=== PATIENT | female | born 1975 | race Caucasian/White ===

== ENCOUNTER → 2020-09-10 17:29 | Outpatient (CLI) | payer BC, SELFPAY ==
--- NOTE | ~2020-09-10 | MM_ITS ---
EXAMINATION: MM screening [facility] BI w luisa HISTORY: Screening TECHNIQUE: Craniocaudal and mediolateral oblique 3-D tomosynthesis images were obtained and synthetic 2-D images were generated. CAD analysis was submitted and interpreted. COMPARISON: No prior mammogram is available for comparison at this institution. BREAST PARENCHYMAL COMPOSITION: The breasts are heterogeneously dense, which may obscure small masses . FINDINGS: There is a mass in the upper outer quadrant of the left breast containing internal calcific ations. There are additional asymmetries in the upper outer quadrant of both breasts. IMPRESSION: 1. Partially obscured left breast mass with bilateral breast asymmetries in the upper outer quadrants of both breasts. 2. Additional mammographic views and possible breast ultrasound are recommended. Comparison no previo us outside mammograms also recommended. BI-RADS Category 0: Incomplete: Needs additional imaging evaluation. Reviewed, dictated and finalized at location A. OR LINUX UNIX ADMINISTRATOR IMPRESSION: 1. Partially obscured left breast mass with bilateral breast asymmetries in the upper outer quadrants of both breasts. 2. Additional mammographic views and possible breast ultrasound are recommended . Comparison no previous outside mammograms also recommended. BI-RADS Category 0: Incomplete: Needs additional imaging evaluation.
== END ==
PROVIDERS: PCP Family Medicine; Visit Provider Nurse Practitioner
DX: Z12.31 Encounter for screening mammogram for malignant neoplasm of breast (principal); R92.8 Other abnormal and inconclusive findings on diagnostic imaging of breast
CPT/HCPCS: 77063; 77067

== ENCOUNTER → 2020-10-02 07:41 | Outpatient (CLI) | payer BC, SELFPAY ==
--- NOTE | ~2020-10-02 | MMUS_ITS ---
EXAMINATION: MM diagnostic mammo BI, US breast BI limited HISTORY: 09/10/2020 bilateral digital screening mammogram report of bilateral breast asymmetries in u pper outer quadrants, developing mass in upper outer quadrant of left breast TECHNIQUE: Additional 3-D tomosynthesis images of both breasts were performed and synthetic 2-D image s were generated. CAD analysis was submitted and interpreted. High resolution bilateral upper outer a nd lower-outer quadrants breast ultrasound was performed. COMPARISON: 09/10/2020 bilateral digital screening mammogram 12/30/2018 [facility] mobile van bilateral digital screening mammogram... FINDINGS: MAMMOGRAPHIC FINDINGS: An approximately 11.9 x 22 mm circumscribed mass with calcifications is noted posteriorly in the oute r mid left breast. No other left or right breast mass is evident mammographically. ULTRASOUND: Right breast: 11:00 4 cm from nipple: Parallel circumscribed hypoechoic 5.9 x 7.6 x 6.4 mm sonolucency, without int ernal vascularity or posterior shadowing, likely benign Left breast: 3:00 7 cm from nipple: Parallel circumscribed 8.3 x 14 x 12 mm hypoechoic lesion without internal vascularity or suspicious shadowing, consistent with benign process, likely a benign fibroa denoma. IMPRESSION: 1. Benign findings; no mammographic evidence of malignancy 2. Routine annual mammographic screening is recommended. BI-RADS Category 2: Benign finding(s). Reviewed, dictated and finalized at location A. DRETTE OWNER IMPRESSION: 1. Benign findings; no mammographic evidence of malignancy 2. Routine annual mammographic screening is recommended. BI-RADS Category 2: Benign finding(s).
== END ==
PROVIDERS: Visit Provider Obstetrics & Gynecology Gynecology
DX: R92.8 Other abnormal and inconclusive findings on diagnostic imaging of breast (principal)
CPT/HCPCS: 76642; 77066

== ENCOUNTER → 2022-03-03 16:54 | Outpatient (CLI) | payer BC, SELFPAY ==
--- NOTE | ~2022-03-03 | MM_ITS ---
EXAMINATION: MM screening [facility] BI w luisa HISTORY: Screening mammogram TECHNIQUE: Craniocaudal and mediolateral oblique 3-D tomosynthesis images were obtained and synthetic 2-D images were generated. Bilateral rotated lateral CC views. CAD analysis was submitted and interp reted. COMPARISON: 10/02/2020 bilateral diagnostic mammography and bilateral Limited breast ultrasound 09/10/2020, 12/20/2018 bilateral screening mammogram examinations BREAST PARENCHYMAL COMPOSITION: The breasts are heterogeneously dense, which may obscure small masses . FINDINGS: Again noted is an approximately 2.2 cm circumscribed mass with benign calcifications in the posterior outer mid left breast, likely a benign fibroadenoma. There is no evidence of suspicious ma ss, calcification, or architectural distortion to suggest malignancy in either breast. There has been no suspicious interval change. IMPRESSION: 1. No mammographic evidence of malignancy. 2. Recommend routine screening mammography in one year. BI-RADS Category 2: Benign finding(s). Reviewed, dictated and finalized at location A.
== END ==
PROVIDERS: PCP Family Medicine; Visit Provider Nurse Practitioner
DX: Z12.31 Encounter for screening mammogram for malignant neoplasm of breast (principal)
CPT/HCPCS: 77063; 77067

== ENCOUNTER 2022-04-10 08:58 | Outpatient (CLI) | payer BC, SELFPAY ==
--- NOTE | 2022-04-10 11:00 | NEURO_ITS ---
Impression: # Complains of numbness of hands. # Mild bilateral Carpal Tunnel Syndrome. # No ulnar neuropathy. # Normal needle/EMG exam. Nerve Conduction Studies Anti Sensory Summary Table Stim Site NR Peak (ms) P-T Amp (?V) Site1 Site2 Delta-P (ms) Dist (cm) Donovan (m/s) Left Median Anti Sensory (2-3nd Digit) Wrist 3.2 51.6 Wrist 2-3nd Digit 3.2 14.0 44 Wrist 3.3 25.7 Wrist 2-3nd Digit 3.2 14.0 44 Right Median Anti Sensory (2-3nd Digit) Wrist 3.1 40.0 Wrist 2-3nd Digit 3.1 14.0 45 Wrist 3.0 43.8 Wrist 2-3nd Digit 3.1 14.0 45 Left Radial Anti Sensory (Base 1st Digit) Wrist 1.9 21.0 Wrist Base 1st Digit 1.9 0.0 Right Radial Anti Sensory (Base 1st Digit) Wrist 2.1 22.7 Wrist Base 1st Digit 2.1 0.0 Left Ulnar Anti Sensory (5th Digit) Wrist 2.3 38.9 Wrist 5th Digit 2.3 14.0 61 Right Ulnar Anti Sensory (5th Digit) Wrist 2.0 56.2 Wrist 5th Digit 2.0 14.0 70 Motor Summary Table Stim Site NR Onset (ms) O-P Amp (mV) Site1 Site2 Delta-0 (ms) Dist (cm) Donovan (m/s) Left Median Motor (Abd Poll Brev) Wrist 3.3 7.0 Elbow Wrist 5.2 31.0 60 Elbow 8.5 4.2 Right Median Motor (Abd Poll Brev) Wrist 3.4 5.7 Elbow Wrist 4.9 28.0 57 Elbow 8.3 2.8 Left Ulnar Motor (Abd Dig Minimi) Wrist 2.1 6.7 A Elbow Wrist 5.2 30.0 58 A Elbow 7.3 5.9 Right Ulnar Motor (Abd Dig Minimi) Wrist 2.2 6.7 A Elbow Wrist 5.2 30.0 58 A Elbow 7.4 3.4 F Wave Studies NR F-Lat (ms) L-R F-Lat (ms) Left Median (Mrkrs) (Abd Poll Brev) 27.21 0.99 Right Median (Mrkrs) (Abd Poll Brev) 28.20 0.99 Left Ulnar (Mrkrs) (Abd Dig Min) 27.27 0.11 Right Ulnar (Mrkrs) (Abd Dig Min) 27.15 0.11 EMG Side Muscle Nerve Root Ins Act Fibs Amp Dur Recrt Comment Right 1stDorInt Ulnar C8-T1 Nml Nml Nml Nml Nml Right Ext Indicis Radial (Post Int) C7-8 Nml Nml Nml Nml Nml Right Ext Digitorum Radial (Post Int) C7-8 Nml Nml Nml Nml Nml Right BrachioRad Radial C5-6 Nml Nml Nml Nml Nml Right PronatorTeres Median C6-7 Nml Nml Nml Nml Nml Right Abd Poll Brev Median C8-T1 Nml Nml Nml Nml Nml Left 1stDorInt Ulnar C8-T1 Nml Nml Nml Nml Nml Left Ext Indicis Radial (Post Int) C7-8 Nml Nml Nml Nml Nml Left Ext Digitorum Radial (Post Int) C7-8 Nml Nml Nml Nml Nml Left BrachioRad Radial C5-6 Nml Nml Nml Nml Nml Left PronatorTeres Median C6-7 Nml Nml Nml Nml Nml Left Abd Poll Brev Median C8-T1 Nml Nml Nml Nml Nml MTDD
== END 2022-04-10 08:59 | disposition home or self-care (01) ==
PROVIDERS: PCP Family Medicine; Visit Provider Family Medicine
DX: G56.01 Carpal tunnel syndrome, right upper limb (principal); G56.03 Carpal tunnel syndrome, bilateral upper limbs
CPT/HCPCS: 95886; 95911

== ENCOUNTER → 2023-07-10 16:13 | Outpatient (CLI) | payer BC, SELFPAY ==
--- NOTE | ~2023-07-10 | MM_ITS ---
EXAMINATION: MM screening [facility] BI w luisa HISTORY: Screening mammogram TECHNIQUE: Craniocaudal and mediolateral oblique 3-D tomosynthesis images were obtained and synthetic 2-D images were generated. CAD analysis was submitted and interpreted. COMPARISON: 03/03/2022 bilateral screening mammogram 10/02/2020 bilateral diagnostic mammography and bilateral Limited breast ultrasound 09/10/2020 bilateral screening mammogram BREAST PARENCHYMAL COMPOSITION: There are scattered areas of fibroglandular density. FINDINGS: Stable approximately 2 cm circumscribed mass with benign calcifications in the posterior up per outer quadrant of the left breast. There is no evidence of suspicious mass, calcification, or arc hitectural distortion to suggest malignancy in either breast. There has been no suspicious interval c hange. IMPRESSION: 1. Benign finding. No mammographic evidence of malignancy. 2. Recommend routine screening mammography in one year. BI-RADS Category 2: Benign finding(s). Reviewed, dictated and finalized at location A.
== END ==
PROVIDERS: PCP Nurse Practitioner; Visit Provider Nurse Practitioner
DX: Z12.31 Encounter for screening mammogram for malignant neoplasm of breast (principal)
CPT/HCPCS: 77063; 77067

== ENCOUNTER 2023-10-14 10:11 | Outpatient (CLI) | payer OTHER, SELFPAY ==
--- NOTE | 2023-10-14 | ECG_ITS ---
Measurements Intervals [place] Rate: 70 P: 56 CO: 153 QRS: 46 QRSD: 98 T: 31 QT: 405 QTc: 439 Interpretive Statements SINUS RHYTHM INCOMPLETE RIGHT BUNDLE BRANCH BLOCK BORDERLINE ECG NO PREVIOUS ECG AVAILABLE FOR COMPARISON Electronically Signed On 10-14-2023 11:10:36 GEOLOGICAL TECHNICAL OFFICER by Jay Ashton D.O.
== END 2023-10-14 10:12 | disposition home or self-care (01) ==
PROVIDERS: PCP Family Medicine
DX: Z01.818 Encounter for other preprocedural examination (principal); I45.10 Unspecified right bundle-branch block; R93.1 Abnormal findings on diagnostic imaging of heart and coronary circulation
CPT/HCPCS: 93005

== ENCOUNTER 2024-06-08 07:49 | Day surgery (SDC) | payer OTHER, SELFPAY ==
[2024-05-20 10:25] VITALS: BMI 33.7
[2024-05-24 11:23] VITALS: BMI 32.3
[2024-06-08 08:25] VITALS: BP 139/73; PULSE 79; RESP 18; TEMP 36.6; O2SAT 98
[2024-06-08] MEDS: LACTATED RINGERS 1,000 ML 150 ML IV CONT (08:45)
--- NOTE | 2024-06-08 08:58 | PM.HPGS ---
History of Present Illness History of Present Illness Consent: Risks, benefits, and alternatives have been discussed and questions answered. Patient agrees to proceed with procedure. Chief complaint: Neoplasm Screening Narrative: Ibeth Coker is a 48 year old female presents for screening colonoscopy. Patient's current weight appetite and bowel movements are normal. Patient denies abdominal pain. Has had no bleeding. Family history noncontributory. Review of Systems Review of Systems: All systems reviewed & are unremarkable except as noted in HPI and below PMFSH Past Medical History Medical History (Updated 06/08/24 @ 08:59 by Mario Valadez MD) Acne Allergic rhinitis, unspecified Benign essential hypertension Carpal tunnel syndrome of right wrist Class 2 severe obesity due to excess calories with serious comorbidity and body mass index (BMI) of 35.0 to 35.9 in adult Eczema Generalized anxiety disorder Hyperlipidemia Major depressive disorder, recurrent, in partial remission Mild intermittent asthma, uncomplicated Mild persistent asthma, uncomplicated Pure hypercholesterolemia, unspecified Restless leg syndrome Urticaria Surgical History Surgical History (Updated 11/12/23 @ 16:44 by Migue Briones MD) History of carpal tunnel release 10/20/2023 Family History Family History (Updated 11/03/23 @ 11:33 by Iliana Morales, PA-C) Father Hypertension Lung cancer Mother Migraines Degenerative disc disease, cervical Grandparent Dementia Lung cancer Social History Social History Years smoked: 12 Smoking status: Former smoker Tobacco type: cigarettes Second hand tobacco smoke exposure: No Alcohol intake: current Drinks per week: 16 Substance use: never Substance use type: does not use Lack of Transportation: No Lack of Food: Never True Current Housing: I Have Housing Concerned About Future Housing: No Difficulty Paying Gas/Electric Bills: No Difficulty Paying for Meds: No Currently Unemployed: No Education: Trade/Vocational Certificate Difficulty w/ Childcare or Family Care: No Living arrangements: with family Occupation/Education: occupation Gender identity (if verbalized by the patient): Female Sexual Orientation (if Verbalized by the Patient): Straight or Heterosexual Spiritual care concerns: No Meds Home Medications and Allergies Home Medications Medication Instructions Recorded Confirmed Type albuterol sulfate 90 mcg/actuation 1 inh inhalation Q4H PRN Shortness 09/22/22 06/08/24 History aerosol inhaler (ProAir HFA) Of Breath cetirizine 10 mg tablet (Allergy 10 mg PO DAILY 09/22/22 06/08/24 History Relief (cetirizine)) fluticasone propionate 50 1 spray intranasal BID 09/22/22 06/08/24 History mcg/actuation nasal spray,suspension (Allergy Relief (fluticasone)) loratadine 10 mg tablet 10 mg PO DAILY 09/22/22 06/08/24 History nifedipine 30 mg tablet,extended 30 mg PO DAILY 09/22/22 06/08/24 History release 24 hr norgestimate 0.25 mg-ethinyl 1 tablet PO DAILY 09/22/22 06/08/24 History estradiol 35 mcg tablet (Estarylla) clobetasol 0.05 % topical cream 1 applic topical BID #60 grams 12/11/22 06/08/24 Rx Bifidobacterium infantis 10.5 mg 10.5 mg PO DAILY 11/12/23 06/08/24 History (10 million cell) chewable tablet (Align) lisinopril 10 mg tablet 10 mg PO DAILY #90 tabs 01/15/24 06/08/24 Rx metoprolol succinate 50 mg 50 mg PO DAILY #90 tabs 03/18/24 06/08/24 Rx tablet,extended release 24 hr omeprazole 20 mg capsule,delayed 20 mg PO DAILY #90 caps 04/12/24 06/08/24 Rx release sodium,potassium,mag sulfates 17.5 See Rx Instructions PO .COMPLEX 05/20/24 06/08/24 Rx gram-3.13 gram-1.6 gram oral soln #354 mL (Suprep Bowel Prep Kit) duloxetine 30 mg capsule,delayed 30 mg PO DAILY #90 caps 05/22/24 06/08/24 Rx release [id number]-ipwl-minerals
--- NOTE | 2024-06-08 09:26 | WPDANESEPPF ---
Anes - Initial Pre Proc Eval Procedure: Operation Date: 06/08/24 09:30 Proposed Procedures p Screening Colonoscopy - Mario Valadez MD Date/Time: 06/08/24 09:26 Surgeon: Mario Valadez MD Pre Op Diagnosis: Neoplasm Screening Patient Data Age: 48 Gender: F Height: 1.68 m Weight: 91.3 kg Last Vital Signs Temp 36.6 C 06/08/24 08:25 Pulse 79 06/08/24 08:25 Resp 18 06/08/24 08:25 BP 139/73 06/08/24 08:25 Pulse Ox 98 06/08/24 08:25 O2 Del Method Room Air 06/08/24 08:25 Allergies Allergy/AdvReac Type Severity Reaction Status Date / Time No Known Drug Allergies Allergy Unknown Verified 06/08/24 08:29 Home Medications Medication Instructions Recorded Confirmed Type albuterol sulfate 90 mcg/actuation 1 inh inhalation Q4H PRN Shortness 09/22/22 06/08/24 History aerosol inhaler (ProAir HFA) Of Breath cetirizine 10 mg tablet (Allergy 10 mg PO DAILY 09/22/22 06/08/24 History Relief (cetirizine)) fluticasone propionate 50 1 spray intranasal BID 09/22/22 06/08/24 History mcg/actuation nasal spray,suspension (Allergy Relief (fluticasone)) loratadine 10 mg tablet 10 mg PO DAILY 09/22/22 06/08/24 History nifedipine 30 mg tablet,extended 30 mg PO DAILY 09/22/22 06/08/24 History release 24 hr norgestimate 0.25 mg-ethinyl 1 tablet PO DAILY 09/22/22 06/08/24 History estradiol 35 mcg tablet (Estarylla) clobetasol 0.05 % topical cream 1 applic topical BID #60 grams 12/11/22 06/08/24 Rx Bifidobacterium infantis 10.5 mg 10.5 mg PO DAILY 11/12/23 06/08/24 History (10 million cell) chewable tablet (Align) lisinopril 10 mg tablet 10 mg PO DAILY #90 tabs 01/15/24 06/08/24 Rx metoprolol succinate 50 mg 50 mg PO DAILY #90 tabs 03/18/24 06/08/24 Rx tablet,extended release 24 hr omeprazole 20 mg capsule,delayed 20 mg PO DAILY #90 caps 04/12/24 06/08/24 Rx release sodium,potassium,mag sulfates 17.5 See Rx Instructions PO .COMPLEX 05/20/24 06/08/24 Rx gram-3.13 gram-1.6 gram oral soln #354 mL (Suprep Bowel Prep Kit) duloxetine 30 mg capsule,delayed 30 mg PO DAILY #90 caps 05/22/24 06/08/24 Rx release xinecfipwiaj-Uj-ftuo-minerals 18 1 tablet PO DAILY 05/24/24 06/08/24 History mg-0.4 mg tablet semaglutide (weight loss) 1 mg/0.5 1 mg subcut WEEKLY WEIGHT LOSS 05/24/24 06/08/24 History mL subcutaneous pen injector Patient hx anesthesia problems: none Family hx anesthesia problems: none Results Review: All pre-operative results and documents have been reviewed as part of the pre-operative evaluation. [facility] Past Medical History Medical History Acne Allergic rhinitis, unspecified Benign essential hypertension Carpal tunnel syndrome of right wrist Class 2 severe obesity due to excess calories with serious comorbidity and body mass index (BMI) of 35.0 to 35.9 in adult Eczema Generalized anxiety disorder Hyperlipidemia Major depressive disorder, recurrent, in partial remission Mild intermittent asthma, uncomplicated Mild persistent asthma, uncomplicated Pure hypercholesterolemia, unspecified Restless leg syndrome Urticaria Surgical History Surgical History History of carpal tunnel release 10/20/2023 Family History Family History Father Hypertension Lung cancer Mother Migraines Degenerative disc disease, cervical Grandparent Dementia Lung cancer Social History Social History Years smoked: 12 Smoking status: Former smoker Tobacco type: cigarettes Second hand tobacco smoke exposure: No Alcohol intake: current Drinks per week: 16 Substance use: never Substance use type: does not use Lack of Transportation: No Lack of Food: Never True Current Housing: I Have Housing Concerned About Fu
[2024-06-08 09:52] VITALS: BP 110/61; PULSE 82; RESP 14; O2SAT 99
[2024-06-08 10:02] VITALS: BP 129/86; PULSE 69; RESP 15; O2SAT 100
[2024-06-08 10:12] VITALS: BP 125/79; PULSE 70; RESP 14; O2SAT 100
--- NOTE | 2024-06-08 10:26 | WPDANESPN ---
Anes - Prog Note Post-Op Date/Time: 06/08/24 10:26 Cardiovascular status: normal Respiratory status: normal Airway patency: baseline Mental status: baseline Post-Op hydration status: normal Vital Signs: Last Vital Signs Temp 36.6 C 06/08/24 08:25 Pulse 70 06/08/24 10:12 Resp 14 06/08/24 10:12 BP 125/79 06/08/24 10:12 Pulse Ox 100 06/08/24 10:12 O2 Del Method Room Air 06/08/24 10:12 Pain Score (VAS): 0 I/O: Intake & Output 06/07/24 06/08/24 06/08/24 23:59 07:59 15:59 Intake Total 550 Balance 550 Patient Feedback: Patient satisfied with anesthetic care.
== END 2024-06-08 10:18 | disposition home or self-care (01) ==
PROVIDERS: PCP Family Medicine; Visit Provider Internal Medicine Gastroenterology
PROC: 0DJD8ZZ Inspection of Lower Intestinal Tract, Via Natural or Artificial Opening Endoscopic (ICD-10-PCS; CPT 45378; principal; 2024-06-08 09:30)
DX: Z12.11 Encounter for screening for malignant neoplasm of colon (principal); K64.8 Other hemorrhoids
CPT/HCPCS: 45378

== ENCOUNTER 2024-07-12 11:17 | Outpatient (CLI) | payer OTHER, SELFPAY ==
--- NOTE | ~2024-07-12 | MM_ITS ---
EXAMINATION: MM screening [facility] BI w luisa HISTORY: Screening mammogram TECHNIQUE: Craniocaudal and mediolateral oblique 3-D tomosynthesis images were obtained and synthetic 2-D images were generated. CAD analysis was submitted and interpreted. COMPARISON: 07/10/2023, 03/03/2022, 10/02/2020, 09/10/2020 BREAST PARENCHYMAL COMPOSITION:Not Dense. There are scattered areas of fibroglandular density. FINDINGS: Stable left breast mass. No suspicious mass, calcification, or architectural distortion are identified in either breast to suggest malignancy. There has been no suspicious interval change. IMPRESSION: No mammographic evidence of malignancy. Recommend routine screening mammography in one year. BI-RADS Category 2: Benign finding(s). Reviewed, dictated and finalized at [facility].
== END 2024-07-12 11:18 | disposition home or self-care (01) ==
LOC: MICIMG 11:19
PROVIDERS: PCP Family Medicine; Visit Provider Nurse Practitioner
DX: Z12.31 Encounter for screening mammogram for malignant neoplasm of breast (principal)
CPT/HCPCS: 77063; 77067

== ENCOUNTER 2025-07-14 12:54 | Outpatient (CLI) | payer OTHER, SELFPAY ==
--- NOTE | ~2025-07-14 | MM_ITS ---
EXAMINATION: MM screening [facility] BI w luisa HISTORY: Screening TECHNIQUE: Craniocaudal and mediolateral oblique 3-D tomosynthesis images were obtained and synthetic 2-D images were generated. CAD analysis was submitted and interpreted. COMPARISON: Comparison to multiple prior studies sequentially, with oldest reviewed study dated 12/20/2018. BREAST PARENCHYMAL COMPOSITION: Not dense: There are scattered areas of fibroglandular density. FINDINGS: There is no evidence of suspicious mass, calcification, or architectural distortion to suggest malignancy in either breast. There has been no suspicious interval change. IMPRESSION: 1. No mammographic evidence of malignancy. 2. Recommend routine screening mammography in one year. BI-RADS Category 1: Negative Reviewed, dictated and finalized at location B.
== END 2025-07-14 12:55 | disposition home or self-care (01) ==
PROVIDERS: PCP Family Medicine; Visit Provider Nurse Practitioner
DX: Z12.31 Encounter for screening mammogram for malignant neoplasm of breast (principal)
CPT/HCPCS: 77063; 77067